=== PATIENT | male | born 1945 | race Caucasian/White ===

== ENCOUNTER 2016-04-07 06:03 | Observation (INO) | payer MEDICARE ==
--- NOTE | 2016-04-06 22:03 | Pre-Procedure Note/Attestation ---
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 I attest that, if there was a reasonable possibility of needing a blood transfusion, the patient (or the patient's legal sales representative consultant) was given the [facility] standardized written summary, pursuant to the Noé Lloyd Blood Safety Act ([place] Health and Safety Code # 1645, as amended). I attest that I re-evaluated the patient just prior to the surgery and that there has been no change in the patient's H&P, which has been done by his PMD and faxed to [facility]. i will co-sign. SANTANA LE Apr 06, 2016 22:03
--- NOTE | 2016-04-06 22:05 | Brief Operative Note ---
Immediate Post Operative Note Operative Note Pre-op Diagnosis: Right post tongue tumor Procedure: Biopsy with frozen section of right post tongue tumor Direct Laryngoscopy Esophagoscopy Anesthesia: general Specimen: yes - 1. right posterior tongue SANTANA LE Apr 06, 2016 22:05
[2016-04-07] VITALS (15 sets, daily range): BP systolic 123–149; BP diastolic 64–88
[~2016-04-07] VITALS: Ht 172.7 cm; Wt 113.4 kg
[~2016-04-07 06:03] MED LIST: ASPIR 8181 MG ORAL; BENICAR20 MG ORAL; Dexamethasone 4mg/ml vial IVP ONE; FISH OIL PO; LIPITOR20 MG ORAL; MAG GLYCINATE100 MG PO; MULTIVITAMINS1 EAC2 ORAL; OXYCODONE HCL15 M1 ORAL; PRILOSEC10 M1 ORAL; PROBIOTIC1 EAC5 PO; STIOLTO RESPIMAT4 GM IH; TESTOSTERONE IM; VIT B12 PO; VIT D PO; ceFAZolin sod 1 GM in D5W 55 ML IV ONE
[2016-04-07] MEDS ORDERED: Bupivacaine w/Epi 0.5% 30ml Vial INJ ONE (07:04)
--- NOTE | 2016-04-07 07:12 | Anethesia Preoperative Eval ---
Anesthesia Pre-op PMH/ROS General Date of Evaluation: Apr 07, 2016 Time of Evaluation: 07:31 Anesthesiologist: Amilcar ASA Score: ASA 3 Mallampati Score Class I : Soft palate, uvula, fauces, pillars visible Class II: Soft palate, uvula, fauces visible Class III: Soft palate, base of uvula visible Class IV: Only hard plate visible Mallampati Classification: Class III Surgeon: Jose Diagnosis: Posterior Tongue mass Surgical Procedure: Bx Tongue, Frozen Section, Larygoscopy, Esophagoscopy Anesthesia History: none Social History: smoking Family History: no anesthesia problems Allergies: Coded Allergies: NIACIN (Verified Allergy, Intermediate, ITCH; REDNESS, 03/28/16) IODINATED CONTRAST MEDIA - IV DYE (Verified Allergy, Unknown, "throat closes up", 03/28/16) Uncoded Allergies: "SOME KIND OF GLOVES" (Adverse Reaction, Severe, REDNESS AND SWELLING IN MY MOUTH AND THROAT, 03/28/16) Nitrile gloves (Adverse Reaction, Unknown, Itching, 04/06/16) These are non latex gloves, used at [employer] and also at my office. When I used at my office, he complained of itching a few minutes later-may or may not be related. Medications: see eMAR Past Medical History Cardiovascular: Reports: HTN, other - HL Pulmonary: Reports: STACI, other - Smoker, Emphysema Gastrointestinal/Genitourinary: Reports: GERD PSxH Narrative: Chloecystectomy, R Knee Arthroscopy, T&A Anesthesia Pre-op Phys. Exam Physician Exam Last Vital Signs Date Time Temp Pulse Resp B/P Pulse Ox O2 Delivery O2 Flow Rate FiO2 04/07/16 06:32 98.9 73 16 123/69 95 Room Air Constitutional: NAD Neurologic: CN 2-12 intact Cardiovascular: RRR Respiratory: CTA Gastrointestinal: S/NT/ND Airway Exam Mallampati Score: Class III MO: limited ROM: limited Teeth: intact Anesthesia Pre-op A/P Risk Assessment & Plan Assessment: ASA 3 Plan: GA, Glidescope, BIS Status Change Before Surgery: No Pre-Antibiotics Dru gram Ancef IV Given Within 1 Hr of Incision: Yes Time Given: 07:46 Lake Fitzgerald MD Apr 07, 2016 07:12
[2016-04-07] MEDS ORDERED: Hydrogen Peroxide 120ml Bottle TOPIC ONE (07:21)
[2016-04-07] MEDS ORDERED: Neostigmine 1mg/ml 10ml Inj ONE (07:30)
[2016-04-07] MEDS ORDERED: Alfentanil 2ml Inj ONE (07:30)
[2016-04-07] MEDS ORDERED: Propofol 10mg/ml 20ml IV ONE (07:30)
[2016-04-07] MEDS ORDERED: Zemuron 50mg/5ml Inj IV ONE (07:30)
[2016-04-07] MEDS ORDERED: Sterile Water Irrig 1000ml IRRIG ONE (07:30)
[2016-04-07] MEDS ORDERED: Glycopyrrolate 0.2mg/ml 1ml Vial ONE (07:30)
[2016-04-07] MEDS ORDERED: Dexamethasone 4mg/ml vial ONE (07:30)
[2016-04-07] MEDS ORDERED: LR 1000ml ONE (07:30)
[2016-04-07] MEDS ORDERED: Midazolam 2mg/2ml Inj ONE (07:30)
[2016-04-07] MEDS ORDERED: Lidocaine 1% 10mg/ml/Epi 0.005mg/ml 30ml vial INJ ONE (07:56)
[2016-04-07] MEDS ORDERED: NS Irrig 1000ml IRRIG ONE (07:56)
[2016-04-07] MEDS ORDERED: LR 1000ml 1,000 ML IVLG SCH (08:11)
--- NOTE | 2016-04-07 08:11 | 48 Hour Post Anesthesia Eval ---
Post Anesthesia Evaluation Procedure: Bx Tongue, Frozen Section, Larygoscopy, Esophagoscop Date of Evaluation: Apr 07, 2016 Time of Evaluation: 12:04 Blood Pressure Systolic: 144 0: 76 Pulse Rate: 82 Respiratory Rate: 18 Temperature (Fahrenheit): 98.6 O2 Sat by Pulse Oximetry: 97 Airway: patent Nausea: No Vomiting: No Pain Intensity: 2 Hydration Status: adequate Cardiopulmonary Status: Stable Mental Status/LOC: patient returned to baseline Follow-up Care/Observations: 0 Post-Anesthesia Complications: 0 Follow-up care needed: ready to discharge Lake Fitzgerald MD Apr 07, 2016 08:11
--- NOTE | 2016-04-07 08:11 | Immediate Post-Op Evaluation ---
Immediate Post-Op Evalulation Immediate Post-Op Evalulation Procedure: Bx Tongue, Frozen Section, Larygoscopy, Esophagoscop Date of Evaluation: Apr 07, 2016 Time of Evaluation: 09:09 IV Fluids: 1000 LR Blood Products: 0 Estimated Blood Loss: 50 Urinary Output: 0 Blood Pressure Systolic: 142 Blood Pressure Diastolic: 82 Pulse Rate: 85 Respiratory Rate: 16 O2 Sat by Pulse Oximetry: 99 Temperature (Fahrenheit): 99.2 Pain Score (1-10): 2 Nausea: No Vomiting: No Complications 0 Patient Status: awake, reacts, patent, extubated, none Hydration Status: adequate Dru Gram Ancef IV Given Within 1 Hr of Incision: Yes Time Given: 07:46 Lake Fitzgerald MD Apr 07, 2016 08:11
[2016-04-07] MEDS ORDERED: Norco 5mg/325mg tab ORAL PRN ×2 (08:15→09:15)
[2016-04-07] MEDS ORDERED: Midazolam 2mg/2ml Inj IVP PRN (08:15)
[2016-04-07] MEDS ORDERED: Ketorolac 30mg Inj IV PRN (08:15)
[2016-04-07] MEDS ORDERED: Atropine Inj 1mg/10ml Syr IV PRN (08:15)
[2016-04-07] MEDS ORDERED: Ketorolac 60mg Inj IV PRN (08:15)
[2016-04-07] MEDS ORDERED: Metoclopramide 10mg/2ml Inj IVP PRN ×2 (08:15→09:15)
[2016-04-07] MEDS ORDERED: Labetalol 5mg/ml 20ml vial IV PRN (08:15)
[2016-04-07] MEDS ORDERED: LORazepam Inj 2mg/ml 1ml IV PRN (08:15)
[2016-04-07] MEDS ORDERED: Meperidine 25mg/ml Inj IV PRN (08:15)
[2016-04-07] MEDS ORDERED: Oxycodone/Acetaminophen 5-325 ORAL PRN (08:15)
[2016-04-07] MEDS ORDERED: Norco 7.5mg/325mg tab ORAL PRN (08:15)
[2016-04-07] MEDS ORDERED: DiphenhydrAMINE 50mg/ml Inj IVP PRN (08:15)
[2016-04-07] MEDS ORDERED: fentaNYL 100 mcg/2 mL IV PRN (08:15)
--- NOTE | 2016-04-07 09:21 | Discharge Instructions ---
Discharge Instructions Discharge Instructions Follow up with: pt has appt next week already scheduled Diet: regular Resume Normal Activity?: Yes Pneumonia Vaccine: pt refused vaccine Influenza Vaccine (Nov to Apr): pt refused vaccine Follow Up Orders pt has printed instructions from his pre op visit in my office last week. He already has pain pills for post op at home, no further antibiotics required. Return to Work/School on: Apr 21, 2016 For Surgical Patients Contact your physician for: bleeding, pain, tenderness, redness, swelling, yellowish discharge in the op. site, other - tongue swelling, issues with breathing For Congestive Heart Failure Reminder Report to your physician any weight gain of 5 pounds or more in one week. SANTANA LE Apr 07, 2016 09:21
[2016-04-07] MEDS: Hydromorphone 0.5mg/0.5ml inj IVP PRN ×2 (09:24→09:57)
[2016-04-07] MEDS ORDERED: Lactobacillus-GG tablet ORAL ONE (12:00)
[2016-04-07] MEDS: Dexamethasone 4mg/ml vial IVP SCH ×2 (13:19→17:02)
--- NOTE | 2016-04-07 13:37 | Operative Note - Dictated ---
DATE OF OPERATION: 04/07/2016 INDICATION FOR SURGERY: The patient who CT scan had a 2 cm mass at the base of tongue just lateral to the right midline. PREOPERATIVE DIAGNOSIS: The patient who CT scan had a 2 cm mass at the base of tongue just lateral to the right midline. POSTOPERATIVE DIAGNOSIS: The patient who CT scan had a 2 cm mass at the base of tongue just lateral to the right midline. FINDINGS: Frozen section lymphocytic infiltrates. No signs of cancer. Permanent section is pending at [facility], which should be back within two weeks. PROCEDURES: 1. Direct laryngoscopy. 2. Esophagoscopy. Rigid esophagoscopy. 3. Biopsy at the base of tongue, with frozen section glands. TECHNIQUE: The patient was prepped and draped in the usual manner. Time-out was performed. All agreed as the required equipment. ANESTHESIA: General anesthesia with 5 mL of 1% lidocaine 1000 epinephrine injected into the base of the skull. I then proceeded to use a laryngoscope evaluated the piriform sinuses, valleculae epiglottis, vocal cords, false cords all appeared normal. No ulcerations or tumors. There was also a deep palpation with my finger after the scope was removed. I think, it is a organic feel 2 cm mass in the base of the tongue, which was below the mucosa and epithelium. Rigid esophagoscope was placed down to the stomach. No ulcerations or tumors seen. Scope was removed. Please note that there was a tooth guard used at all times, at the end of the case the teeth were fine and unchanged from the beginning of the case. I then proceeded to put a mouth gag in again open the mouth. I then proceeded to pull the tongue out and palpate the 2 cm mass. With a 10 blade made an incision over the mass, I could palpate the mass at that point. I then proceeded to take a biopsy with leeann Rose. This was given to the pathologist to gave the above over oral findings. The base of the oropharynx was packed with the 4 x 4. The mouth gag was then let down and this happened four times. There was bleeding at first and then slowed down. Ultimately there was no bleeding. In the last five minutes, there was no bleeding. In the recovery room, he has been there for 20+ minutes so there has been no bleeding we were aware of and still a little groggy. Sponge and needle count was correct. EBL: 75 cubic centimeters. COUNTS: None. DRAINS: None. The patient will be staying overnight as a precaution on steroids. His regular physician has incurred to was not on staff at [facility]. He was notified and Dr. Cesar Phelps will be taking a look at him, as a precaution per my request should there be any problems with swelling. He is placed on steroids to help protect it. I anticipate that he will be discharged tomorrow morning without difficulty. Thank you very much for asking my opinion care and treatment. Van Garcia M.D. DR: SARATH JOB#: [id number] CC: THAI
[2016-04-07] MEDS: HYDROmorphone 1mg/ml Carpuject SUBQ PRN ×2 (17:04→21:54)
--- NOTE | 2016-04-07 17:20 | Consultation ---
Consult Note Assessment/Plan note dict ordered meds CPAP ERNIE ORTEGA Apr 07, 2016 17:20
[2016-04-07] MEDS ORDERED: Atorvastatin 20mg tab ORAL SCH (21:00)
--- NOTE | 2016-04-07 23:28 | Consultation ---
DATE OF CONSULTATION: 04/07/2016 CHIEF COMPLAINT: Tongue mass. HISTORY OF PRESENT ILLNESS: The patient is a 70-year-old man, who comes to the hospital today for elective outpatient biopsy of a mass at the base of the tongue. He is staying overnight on observation as he is having difficulty swallowing and some shortness of breath. PAST MEDICAL HISTORY: The patient is known to have chronic obstructive pulmonary disease. He had a benign lung nodule resected about two years ago. He has a history of hypertension, hyperlipidemia, sleep apnea, and hypogonadism. ALLERGIES: Iodine, niacin, and possibly latex. MEDICATIONS: Oxycodone, Benicar, Prilosec, Cialis, Lipitor, testosterone injections, Xanax, inhaled bronchodilators. PAST MEDICAL HISTORY: Hypertension, hyperlipidemia, emphysema, benign lung mass. SURGICAL HISTORY: Lung nodule resection, tonsillectomy, cholecystectomy. SOCIAL HISTORY: He is a former smoker. He quit about 10 years ago. FAMILY HISTORY: Noncontributory. REVIEW OF SYSTEMS: Otherwise unremarkable. He is having portions of his voice that led to the identification of the mass at that time. PHYSICAL EXAMINATION: GENERAL: The patient is alert, he is morbidly obese. VITAL SIGNS: Stable. The blood pressure is normal. SKIN: Warm and dry. HEENT: The head is normocephalic. The mouth has no lesions. CHEST: Decreased air entry. CARDIAC: Rhythm is regular. ABDOMEN: Soft and nontender. EXTREMITIES: No edema. IMPRESSION: 1. Status post biopsy of tongue mass with some dysphagia and dysphonia. 2. Chronic obstructive pulmonary disease. 3. Sleep apnea. 4. Hypertension. 5. Hyperlipidemia. PLAN: The patient will resume his blood pressure medication tomorrow. Pain medications has been ordered. He is on Decadron as well ordered by Dr. Garcia. We will order CPAP for him although he has not yet started this at home. Thank you for asking me to see him in consultation. Cesar Phelps M.D. DR: LES JOB#: [id number] CC: Cesar Phelps M.D.; Fax#: [phone] Berman, M.D. ; Fax#: [phone]
[2016-04-08] MEDS: Dexamethasone 4mg/ml vial IVP SCH (00:32)
[2016-04-08 00:47] VITALS: BP 126/64
[2016-04-08 04:00] VITALS: BP 137/81
== END 2016-04-08 06:40 | disposition home or self-care (01) ==
LOC: SUR 06:03 → 3E 10:36
DX: D10.1 Benign neoplasm of tongue (principal); I10 Essential (primary) hypertension; E78.00 Pure hypercholesterolemia, unspecified; I49.1 Atrial premature depolarization; J43.9 Emphysema, unspecified; G47.33 Obstructive sleep apnea (adult) (pediatric); K21.9 Gastro-esophageal reflux disease without esophagitis; E29.1 Testicular hypofunction; Z87.891 Personal history of nicotine dependence; Z88.8 Allergy status to other drugs, medicaments and biological substances; Z91.040 Latex allergy status; Z91.041 Radiographic dye allergy status; Z90.49 Acquired absence of other specified parts of digestive tract
CPT/HCPCS: 31525; 41105; G0378 ×2; J0690 ×2; J1100 ×2; J1170 ×2; J1200; J2250; J2405; J2704; J2710; J3490; J7120; 94003; 94150; J2180